=== PATIENT | female | born 1990 | race Caucasian/White ===

== ENCOUNTER → 2022-12-17 | Outpatient (CLI) | payer OTHER | LOC: MHCPAIN 12:50 | DX: M47.816 Spondylosis without myelopathy or radiculopathy, lumbar region (principal); M54.50 Low back pain, unspecified; M53.3 Sacrococcygeal disorders, not elsewhere classified ==

== ENCOUNTER → 2023-01-11 | Outpatient (CLI) | payer OTHER | LOC: MHCPAIN 13:40 | DX: M54.50 Low back pain, unspecified (principal); G54.0 Brachial plexus disorders; R10.2 Pelvic and perineal pain; M54.2 Cervicalgia | CPT/HCPCS: G0463 ==

== ENCOUNTER → 2023-02-04 | Outpatient (CLI) | payer OTHER | LOC: MHCPAIN 11:10 | DX: M54.50 Low back pain, unspecified (principal); G54.0 Brachial plexus disorders; R10.2 Pelvic and perineal pain; M54.2 Cervicalgia | CPT/HCPCS: G0463 ==

== ENCOUNTER → 2023-03-05 | Outpatient (CLI) | payer OTHER | LOC: MHCPAIN 10:14 | DX: M54.50 Low back pain, unspecified (principal); M54.2 Cervicalgia; M54.31 Sciatica, right side; M79.18 Myalgia, other site; Z87.820 Personal history of traumatic brain injury; G54.0 Brachial plexus disorders; R20.2 Paresthesia of skin | CPT/HCPCS: G0463 ==

== ENCOUNTER → 2023-03-11 | Outpatient (CLI) | payer OTHER | LOC: COL.PUL 08:00 | DX: R06.02 Shortness of breath (principal) ==